=== PATIENT | female | born 1960 ===

== ENCOUNTER 2017-07-12 08:43 | Outpatient (CLI) | payer OTHER ==
--- NOTE | 2017-07-12 15:26 | Mammography Report ---
BILATERAL DIGITAL SCREENING MAMMOGRAM with CAD: 07/12/17 08:43:00 CLINICAL: Routine screening.The patient checked that she had chemotherapy in 2005. COMPARISON:None. Previous [facility] mammogram is not available. FINDINGS: The breasts are heterogeneously dense, which may obscure small masses.The left breast is smaller than the right. A left asymmetry on the MLO view near a scar marker requires comparison with the prior mammogram. No architectural distortion or suspicious calcifications. IMPRESSION: Left asymmetry requiring additional evaluation. We will request the prior mammogram for comparison. BI-RADS CATEGORY: 0--Needs Additional Evaluation COMMENT: Patient follow-up letters are generated by our [employer] application.
== END 2017-07-12 08:44 | disposition home or self-care (01) ==
LOC: SPVWC 08:43
PROVIDERS: ATTEND Family Medicine
DX: Z12.31 Encounter for screening mammogram for malignant neoplasm of breast (principal)
CPT/HCPCS: 77067; G0202